=== PATIENT | male | born 1990 | race African-American/Black ===

== ENCOUNTER 2023-02-16 10:27 | Emergency (ER) | payer SELFPAY ==
[~2023-02-16] VITALS: Ht 167.6 cm; Wt 87.1 kg
[2023-02-16] MEDS ORDERED: IBUP-1955 PO (12:12)
[2023-02-16 12:29] VITALS: BP 134/77; TEMP 97.8; O2SAT 96
== END 2023-02-16 12:30 | disposition home or self-care (01) ==
LOC: EDBD 10:35 → ER 10:35
DX: S49.92XA Unspecified injury of left shoulder and upper arm, initial encounter (principal); V89.2XXA Person injured in unspecified motor-vehicle accident, traffic, initial encounter; Y93.89 Activity, other specified; Y92.89 Other specified places as the place of occurrence of the external cause; Y99.8 Other external cause status
CPT/HCPCS: 73030-TC

== ENCOUNTER 2024-05-27 20:14 | Emergency (ER) | payer SELFPAY ==
[~2024-05-27] VITALS: Ht 167.6 cm; Wt 87.1 kg
[~2024-05-27 20:14] MED LIST: IBUP-1955 PO
[2024-05-27 23:13] VITALS: TEMP 97
[2024-05-28 00:24] LABS: BASOPHILS # (AUTO) 0.1 K/uL (0.0-0.2); BASOPHILS % (AUTO) 0.6 % (0.0-2.0); EOSINOPHILS # (AUTO) 0.1 K/uL (0.0-0.7); EOSINOPHILS % (AUTO) 0.5 % (0.0-6.0); HEMATOCRIT 45 % (39-51); HEMOGLOBIN 17.4 g/dL (13.5-17.5); LYMPHOCYTES # (AUTO) 1.6 K/uL (0.8-4.8); LYMPHOCYTES % (AUTO) 13.8 % (20.0-44.0); MEAN CORPUSCULAR HEMOGLOBIN 31 PG (26.0-33.0); MEAN CORPUSCULAR HGB CONC 39 g/dl (31.0-36.0); MEAN CORPUSCULAR VOLUME 81 fL (80-96); MONOCYTES # (AUTO) 0.9 K/uL (0.1-1.30); MONOCYTES % (AUTO) 7.8 % (2.0-12.0); NEUTROPHILS % (AUTO) 77.3 % (43.0-81.0); PLATELET COUNT (AUTO) 194 K/uL (150-450); RED BLOOD CELL COUNT(AUTO) 5.58 MIL/uL (4.5-6.0); RED CELL DISTRIBUTION WIDTH 12.8 % (11.5-15.0); WHITE BLOOD COUNT (AUTO) 11.6 K/uL (4.3-11.0)
[2024-05-28 01:10] LABS: CALCIUM, SERUM 8.8 mg/dL (8.5-10.1); CARBON DIOXIDE 18 mmol/L (21-32); CHLORIDE 96 mmol/L (98-107); CREATININE 0.8 mg/dL (0.6-1.3); GLUCOSE 327 mg/dL (74-106); POTASSIUM 4.3 mmol/L (3.5-5.1); SODIUM SERUM 133 mmol/L (136-145); UREA NITROGEN, BLOOD 8 mg/dL (7-18)
[2024-05-28 01:16] LABS: ALBUMIN 3.7 g/dL (3.4-5.0); ALCOHOL, BLOOD < 3 mg/dL (0-10); ALKALINE PHOSPHATASE 78 U/L (46-116); BILIRUBIN,TOTAL 0.7 mg/dL (0.2-1.0); LIPASE 61 U/L (16-77); TOTAL PROTEIN, SERUM 7.8 g/dL (6.4-8.2)
[2024-05-28 01:55] LABS: ALANINE AMINOTRANSFERASE 42 U/L (12-78); ASPARTATE AMINOTRANSFERASE 17 U/L (15-37)
[2024-05-28] MEDS ORDERED: KETOROLAC TROMETHAMINE INJ 30 MG/ML VIAL ONE (04:50)
[2024-05-28] MEDS: KETOROLAC TROMETHAMINE INJ 30 MG/ML VIAL IM ONE (04:54)
[2024-05-28 06:04] VITALS: BP 141/79; O2SAT 98
== END 2024-05-28 05:45 | disposition home or self-care (01) ==
LOC: ER 20:17
DX: R10.13 Epigastric pain (principal); R07.9 Chest pain, unspecified; R00.0 Tachycardia, unspecified; V98.8XXA Other specified transport accidents, initial encounter; Y93.89 Activity, other specified; Y92.89 Other specified places as the place of occurrence of the external cause; Y99.8 Other external cause status
CPT/HCPCS: 99285; 93005; 74176; 36415; 96372; 85025; 83690; 80053; 84484; 83880; 80320; J1885; G0480